=== PATIENT | male | born 1970 | race Caucasian/White ===

== ENCOUNTER 2018-07-04 19:36 | Emergency (ER) | payer BC ==
[~2018-07-04] VITALS: Ht 172.7 cm; Wt 79.9 kg
[2018-07-04 22:08] VITALS: BP 105/76
== END 2018-07-04 22:13 | disposition home or self-care (01) ==
LOC: EME 19:36
DX: H11.31 Conjunctival hemorrhage, right eye (principal); Z88.0 Allergy status to penicillin
CPT/HCPCS: 99281; 99284; J7120